=== PATIENT | female | born 1970 | race Caucasian/White ===

== ENCOUNTER 2016-10-30 20:30 | Observation (INO) | payer OTHER ==
[~2016-10-30] VITALS: Ht 170.2 cm; Wt 107.0 kg
--- NOTE | ~2016-10-30 | FD ---
ADMIT: 10/30/2016 RM/LOC: 527 [facility] MR#: [id number] [address] [address] SUHA PORTILLO [address] [place] [address] Final Diagnosis SEX: F AGE: 46 : 1970 ADMISSION DATE: 10/30/2016 DISCHARGE DATE: 10/31/2016 DISCHARGE DIAGNOSES: 1. Bilateral hydrosalpinx, possible torsion versus salpingitis. 2. History of ovarian cyst. 3. Obesity. 4. Hyperlipidemia. 5. Hypothyroidism. Thanh Kunz MD/ maryg JOB #: [id number] CC: Malinda Duque MD, Attending Physician Malinda Duque MD, Family Physician
--- NOTE | 2016-10-31 20:02 | ER ---
ADMIT: 10/30/2016 RM/LOC: 527 [facility] MR#: [id number] [address] [address] SUHA PORTILLO [address] [place] [address] Emergency Room Report SEX: F AGE: 46 : 1970 DATE: 10/30/2016 CHIEF COMPLAINT: Pelvic pain. HISTORY OF PRESENT ILLNESS: The patient is a 46-year-old female complaining of acute onset right lower quadrant abdominal pelvic pain with nausea and vomiting. Denies any urgency, fevers, chills, diarrhea, or urinary symptoms. PAST MEDICAL HISTORY: ALLERGIES: SCOPOLAMINE, CAFFEINE. MEDICATIONS: Please see nurse's MAR. ILLNESSES: Hyperlipidemia, ovarian cyst, hypothyroidism. SURGERIES: None. SOCIAL HISTORY: . Nonsmoker. Nondrinker. No illicit drugs. FAMILY HISTORY: Negative per chart review. REVIEW OF SYSTEMS: A 12-point review of systems is negative for all other systems, illnesses, or operations except as outlined above. PHYSICAL EXAMINATION: VITAL SIGNS: Temp 98, pulse 85, respirations 18, BP 100/71, SaO2 of 98% on room air. GENERAL: Toxic-appearing without jaundice or icterus. HEENT: Normocephalic. No evidence of epistaxis, rhinorrhea, or otorrhea. NECK: Supple without lymphadenopathy or thyromegaly. CHEST: Clear. Breath sounds equal. HEART: Regular rate and rhythm without murmur, gallop, or edema. ABDOMEN: Obese. Tender right lower quadrant without mass or megaly. Bowel sounds hypoactive. BACK: No CVA tenderness. PELVIC: Deferred. EXTREMITIES: No evidence of Homans sign, synovitis, or dermatitis. NEURO: EOMI. PERRLA. No evidence of drift, dysarthria, or ataxia. Gait non- antalgic. MEDICAL DECISION MAKING: CT abdomen and pelvis shows normal appendix. Cystic tubular mass noted, right and left adnexa, increase in size from previous imaging study several years ago, noted only on the left. Pelvic and vaginal ultrasound shows complex right greater than left tubular cystic adnexal mass consistent with salpingitis. WBC 11.9, lactic 1.8, CRP less than 0.29, glucose 133, procalcitonin less than 0.05, lipase 112, INR less than 1.0. HCG negative. UA 1+ blood, 2+ ketone. EKG showed low voltage sinus rhythm. No prior tracing. The patient was given vancomycin, cefepime, and Flagyl for acute on chronic salpingitis. Discussed case with Dr. Padmini Moreno, who will ADMIT: 10/30/2016 RM/LOC: 527 [facility] MR#: [id number] [address] [address] SUHA PORTILLO [address] [place] [address] Emergency Room Report SEX: F AGE: 46 : 1970 evaluate in morning. Notified Dr. Kunz of admission, request floor to call for orders. 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 RECOMMENDATION: Admit inpatient Med/Surg for Dr. Duque. ADMISSION/DISCHARGE CONDITION: Stable. CODE STATUS: The patient is a full code. Rian Nielsen MD/ modl JOB #: [id number] CC: Malinda Duque MD, Attending Physician Malinda Duque MD, Family Physician MD Padmini Clemens MD
[2016-11-01] MEDS ORDERED: ZOCOR DPS10 MG PO (15:08)
[2016-11-01] MEDS ORDERED: NORCO 5-325 TA1 EACH PO (15:08)
[2016-11-01] MEDS ORDERED: SYNTHROID DP0.025 MG PO (15:08)
[2016-11-01] MEDS ORDERED: FLAGYL-DPS500 MG PO (15:09)
[2016-11-01] MEDS ORDERED: VIBRAMYCIN-DPS100 M2 PO (15:09)
--- NOTE | 2016-11-06 12:50 | HP ---
ADMIT: 10/30/2016 RM/LOC: 527 [facility] MR#: [id number] [address] [address] [place] SUHA Magallanes [address] [place] [address] History and Physical SEX: F AGE: 46 : 1970 DATE OF SERVICE: HISTORY OF PRESENT ILLNESS: The patient is a very pleasant 46-year-old female, she has a past medical history of hypothyroidism, hyperlipidemia, as well as remote history of ovarian cyst, presents to [facility] Emergency Room today with complaints of acute onset of really right lower quadrant abdominal pain associated with nausea and vomiting, very sharp in nature, very severe, 10/10, mostly on the right side but there was some travel even over to the left. The patient notes no changes in bowel habits. She has no diarrhea or constipation. Denies any urinary change in urinary habits. She has no urgency, no frequency. No dysuria or hematuria has been noted. The patient does note flank pain, for which she tried to take some ibuprofen, but for the severity, came into the emergency room. She denies any vaginal bleeding or any changes in vaginal discharge although she does have some chronic discharge. As mentioned, she has history of ovarian cyst that was seen in the past by Dr. Hernandez, with no interventions taken. With her severe pain, she underwent imaging in the emergency room that showed questionable cystic areas and there was a question of hydrosalpinx. She was admitted for further evaluation and pain control. The patient notes she is much better this morning. Denies nausea or vomiting. Denies any fevers or chills, and rates her pain very minimal, 1 or 2 at this point. PAST MEDICAL HISTORY: 1. Obesity. 2. Hyperlipidemia. 3. Hypothyroidism. 4. Prior history of ovarian cyst. ALLERGIES: SCOPOLAMINE. CURRENT MEDICATIONS: 1. Simvastatin. 2. Synthroid. FAMILY HISTORY: Father with cancer and hypertension. Her father is . Brother with psoriasis. Had a paternal grandfather with heart disease. She is nonsmoker, nondrinker. She is . Lives in [place], [place]. She is a nurse for [employer]. REVIEW OF SYSTEMS: As noted above. All other systems are reviewed and negative. PHYSICAL EXAMINATION: VITAL SIGNS: 99.2, 84, 16, 102/67, 98% on room air. GENERAL: This is an obese female. She is very pleasant. She is in no apparent distress. She is awake. She is alert and oriented x3. Cooperative and pleasant with the examiner. HEENT: Normocephalic and atraumatic. Mucous membranes are moist. NECK: Supple. LUNGS: Clear. ADMIT: 10/30/2016 RM/LOC: 527 [facility] MR#: [id number] [address] [address] SUHA PORTILLO [address] [place] [address] History and Physical SEX: F AGE: 46 : 1970 HEART: Regular. ABDOMEN: She just has a little bit of very mild pelvic tenderness to deep palpation bilaterally. There is no rebound. No guarding is noted. She is nondistended. She has good bowel sounds throughout. EXTREMITIES: Show no significant edema. SKIN: Shows no rash. She has good peripheral pulses. NEUROLOGIC: No cranial nerve deficits. LABORATORY AND X-RAY DATA: Her white count is 11.9, her hemoglobin is 13, and 294,000 platelets. Sodium 140, potassium 4.1, BUN is 16, creatinine 1.0. Her lipase was normal. Her liver function tests, AST, ALT, and alkaline phosphatase within normal limits. Her Mag was 2.2. Urinalysis showed 2+ ketones, 1+ blood, 1 red cell, 1 white cell, and 2 squamous cells. Imaging of the abdomen and pelvis initially with CT scan showed a normal appendix. There were bilateral tubular structures in the adnexal regions bilaterally, left greater than right, suspicious for possible bilateral hydrosalpinx with complex ovarian or adnexal cyst not excluded. Transvaginal and pelvic ultrasound was also undertaken to follow up that CT scan, and it showed suspicion of bilateral complex adnexal masses which may represent abnormal ovaries. The normal ovaries were not identified. ASSESSMENT AND PLAN: 1. Abdominal/pelvic pain. 2. Nausea and vomiting. 3. Bilateral complex adnexal masses versus ovarian cyst on ultrasound. 4. Mild leukocytosis. 5. Hypothyroidism. 6. Hyperlipidemia. 7. Obesity. At this point, the patient is feeling much better. Certainly, does not have a lot of other symptoms concerning for pelvic inflammatory disease. We have treated her pain. We have treated her nausea. We have treated her empirically for PID. We will have Gynecology see her as this is still quite kind of a strange presentation to me, we want them to review the findings. Right now, since she is feeling so much better, we will advance her diet, we will let her walk in the halls and hopefully lock her fluids, and follow up based on Gynecology recommendations. Thanh Knuz MD/ kamini JOB #: [id number] CC: Malinda Duque, Attending Physician Malinda Duque, Family Physician
--- NOTE | 2016-11-16 09:14 | CO ---
ADMIT: 10/30/2016 RM/LOC: 527 [facility] MR#: [id number] [address] [address] SUHA PORTILLO [place] [address] [place] [address] Consultation SEX: F AGE: 46 : 1970 DATE OF CONSULTATION: 10/31/2016 ATTENDING PHYSICIAN: Malinda Duque CONSULTING PHYSICIAN: Padmini Moreno MD REASON FOR CONSULT: Right lower quadrant pain. HISTORY OF PRESENT ILLNESS: The patient is a 46-year-old female who presented to the emergency room on 10/30/2016, with complaints of right lower quadrant pain. The patient stated that she had sudden onset of pain on the evening of 10/30/2016. She denies any other bowel symptoms at that time. At time of consultation, the patient states that her pain has resolved. On evaluation in the emergency room, the patient had a CT scan performed of the abdomen and pelvis. At that time, it was noted that the CT was significant for bilateral tubular structures in the adnexal regions bilaterally, left greater than right which appeared most consistent with bilateral hydrosalpinx. The patient had been noted on a previous CT scan in 2007 to have a similar area in the left adnexal region, but the right adnexal tubular structure was new. The patient stated that after admission, her pain did improve. PAST MEDICAL HISTORY: 1. Hypothyroidism. 2. Hyperlipidemia. PAST SURGICAL HISTORY: None. CURRENT MEDICATIONS: 1. Simvastatin. 2. Synthroid. ALLERGIES: SCOPOLAMINE AND CAFFEINE. FAMILY HISTORY: Father with history of colon cancer. SOCIAL HISTORY: The patient is . She denies any alcohol, tobacco, or drug use. REVIEW OF SYSTEMS: GENERAL: The patient denies any fever, chills, or unexpected weight changes. CARDIOVASCULAR: No chest pain, palpitations, or dyspnea with exertion. RESPIRATORY: No cough, wheeze, or shortness of breath. GASTROINTESTINAL: Positive for right lower quadrant pain and nausea and vomiting prior to arrival. She denies any constipation or diarrhea. FEMALE GENITOURINARY: Positive for irregular menstrual bleeding which was evaluated with endometrial biopsy approximately 7 years ago and has not been evaluated since that time. MUSCULOSKELETAL: No joint pain or muscle weakness. ADMIT: 10/30/2016 RM/LOC: 527 [facility] MR#: [id number] [address] [address] SUHA PORTILLO [place] [address] [place] [address] Consultation SEX: F AGE: 46 : 1970 PHYSICAL EXAMINATION: VITAL SIGNS: At time of admission blood pressure 100/71, pulse 85, respirations 18, and temperature 98. HEART: Regular rate and rhythm without murmurs, gallops, or rubs. LUNGS: Clear to auscultation bilaterally. ABDOMEN: Soft, mildly tender to palpation in the right lower quadrant. Otherwise nontender. No masses appreciated. EXTREMITIES: No edema. No calf tenderness. FEMALE GENITOURINARY: Deferred. LABORATORY DATA: CBC; white count 11.9, hemoglobin 13.0, hematocrit 39.7, and platelets 294. Lactic acid 1.8. Creatinine 0.8. CMP; sodium 140, potassium 4.1, chloride 106, carbon dioxide 23, BUN 16, creatinine 1.0, AST 26, and ALT 37. CT abdomen and pelvis showing dilated tubular structures in left adnexal region 9.9 x 4.6 and right tubular structure 8.0 x 4.7 with increased areas of density in the dependent portions of the tubular structure. Uterus appeared normal on CT scan with some possible fluid in endocervical canal. ASSESSMENT AND PLAN: This 46-year-old female with acute right lower quadrant pain and bilateral hydrosalpinx by imaging. At the time of consultation, the patient's pain is completely resolved without medication. The pain could be result of potential partial torsion of the hydrosalpinx or due to hydrosalpinx itself. At this time due to the patient's stable nature, plan to discharge to home. The patient was started on IV antibiotics in the emergency room in case of possible salpingitis. We will continue doxycycline and Flagyl as an outpatient. She will likely need to have surgery for bilateral salpingectomy and this will be coordinated on an outpatient basis. Padmini Moreno MD/ kamini JOB #: [id number] CC: Malinda Duque, Attending Physician Malinda Duque, Family Physician
[2016-11-24] MEDS ORDERED: SENOKOT DPS8.6 MG PO (13:31)
[2016-11-24] MEDS ORDERED: MOTRIN-DPS400 MG PO (13:31)
[2016-11-24] MEDS ORDERED: TYLENOL EXTRA500 M1 PO (13:31)
== END 2016-10-31 14:24 | disposition home or self-care (01) ==
LOC: ER 20:30 → 5MS 23:25
PROVIDERS: ADMIT Internal Medicine
DX: N70.11 Chronic salpingitis (principal); E78.5 Hyperlipidemia, unspecified; E03.9 Hypothyroidism, unspecified; D72.829 Elevated white blood cell count, unspecified; E66.9 Obesity, unspecified; Z68.36 Body mass index [BMI] 36.0-36.9, adult; Z88.8 Allergy status to other drugs, medicaments and biological substances

== ENCOUNTER 2016-11-18 05:47 | Inpatient (IN) | payer OTHER ==
[~2016-11-18] VITALS: Ht 170.2 cm; Wt 104.9 kg
[~2016-11-18 05:47] MED LIST: FLAGYL-DPS500 MG PO; NORCO 5-325 TA1 EACH PO; SYNTHROID DP0.025 MG PO; VIBRAMYCIN-DPS100 M2 PO; ZOCOR DPS10 MG PO
--- NOTE | 2016-11-23 07:23 | OR ---
ADMIT: 11/18/2016 RM/LOC: 629 [facility] MR#: [id number] [address] [facility] [address] [place], [place] [address] SUHA PORTILLO [address] [place] [address] Operative/Delivery Room Report SEX: F AGE: 46 : 1970 SURGERY DATE: 11/18/2016 SURGEON: Chino Flanagan MD PREOPERATIVE DIAGNOSIS: Abdominal adhesions. POSTOPERATIVE DIAGNOSIS: Abdominal adhesions. PROCEDURE: 1. Lysis of adhesions. 2. Serosal repair of the rectum. 3. Proctoscopy. MANAGER: PIETER Lundberg, whose assistance was necessary for tissue retraction. ESTIMATED BLOOD LOSS: 50 mL. DESCRIPTION OF PROCEDURE: The patient remained in the operating room, and was undergoing open hysterectomy because of extensive pelvic adhesions for endometriosis. She also had a large cystic structure in the left ovary. I was consulted intraoperatively to assist with adhesiolysis of the rectum in the pelvis. I did perform this under visualization. The anterior border of the rectum was densely adherent to the posterior uterus. This was sharply freed to allow complete exposure of the uterus for completion of the gynecologic procedure. Once the hysterectomy was completed, I returned for inspection of the rectum. There was some deserosalization of the rectum, but no evidence of mucosal injury. I did perform proctoscopy and there was evidence for good mucosal integrity and no evidence of leak. The proctoscope was withdrawn. There was solid stool in the distal rectum. The serosa overlying the denuded area was then reapproximated with 3-0 silk suture. This allowed adequate coverage of the mucosa. The pelvis was irrigated and there was no significant bleeding or other abnormality. The remainder of the procedure was completed and closure was performed by Dr. Moreno. Chino Flanagan MD/ kamini JOB #: [id number] CC: Padmini Moreno, Attending Physician Padmini Moreno, Family Physician
[2016-11-24] MEDS ORDERED: SENOKOT DPS8.6 MG PO (13:31)
[2016-11-24] MEDS ORDERED: TYLENOL EXTRA500 M1 PO (13:31)
[2016-11-24] MEDS ORDERED: MOTRIN-DPS400 MG PO (13:31)
--- NOTE | 2016-12-21 08:59 | OR ---
ADMIT: 11/18/2016 RM/LOC: 629 [facility] MR#: [id number] 2620 [facility] [address] [place] [id number] SUHA PORTILLO [address] [place] [address] Operative/Delivery Room Report SEX: F AGE: 46 : 1970 SURGERY DATE: 11/18/2016 SURGEON: Padmini Moreno MD PROCEDURES: 1. Diagnostic laparoscopy. 2. Dilation and curettage. 3. Total abdominal hysterectomy with bilateral salpingo-oophorectomy and lysis of adhesions. 4. Cystoscopy. DA[employer]Y MANUFACTURING TECHNOLOGIST: Eliana Mejias MD. FINDINGS AT TIME OF SURGERY: 1. Extensive pelvic adhesions due to endometriosis. The patient was noted to have complex adnexal masses bilaterally which were extensively scarred to the pelvic sidewalls bilaterally and to the bowel posteriorly as well as extensive adhesions of the bowel to the posterior uterus. 2. Bilateral endometriomas. 3. Total obliteration of the cul-de-sac due to the pelvic adhesions. ESTIMATED BLOOD LOSS: 800 mL. ANESTHESIA: General. COMPLICATIONS: None. INDICATIONS FOR PROCEDURE: The patient is a 46-year-old female who had presented to the emergency room with complaints of acute abdominal pain in October. The patient at that time had by CT and ultrasound appeared to be complex adnexal masses which appeared most consistent with bilateral hydrosalpinx. The patient was therefore scheduled for laparoscopic bilateral salpingectomy with possible oophorectomy. The patient also had been having at times irregular bleeding and so decision made to proceed with dilation and curettage for endometrial tissue and diagnosis at the same time of surgery. Risks, benefits, and alternatives of surgery including, but not limited to risk of bleeding, possibly requiring blood transfusion, risk of infection, the risk of injury to bowel or bladder. The patient was also counseled that due to the large size of the complex masses on ultrasound, open abdominal incision may be necessary. She understands these risks and wished to proceed. DESCRIPTION OF PROCEDURE: The patient was taken to the operating room where general anesthesia was obtained without difficulty. The patient was placed in dorsal lithotomy position in Yellofin stirrups and prepped and draped in usual sterile fashion. Attention was first to the patient's vagina. Weighted speculum was placed the patient's vagina and the anterior lip of the cervix was grasped with a single-tooth tenaculum. The uterus was sounded to approximately 9 cm. The cervix was gently dilated to allow for passage of the curette. Curettage was then performed in all 4 quadrants to obtain tissue. ADMIT: 11/18/2016 RM/LOC: 629 [facility] MR#: [id number] [address] [address] SUHA PORTILLO [address] [place] [address] Operative/Delivery Room Report SEX: F AGE: 46 : 1970 After curettage was performed, an acorn uterine manipulator was then placed into the patient's cervix. Gloves were changed and attention was turned to the patient's abdomen. A 5-mm infraumbilical incision was made with scalpel after local infiltration of 0.25% Marcaine. A Veress needle was inserted into the infraumbilical incision. The patient's abdomen was insufflated to a patient pressure of 15 mmHg. Good gas flow and low patient opening pressure were noted with insufflation. A 5-mm trocar was then placed into this incision and intraperitoneal placement was assured with the camera. At this point, 2 additional ports were placed in the left and right lower quadrants and an 11 mm port in the right lower quadrant and a 5 mm port in the left lower quadrant. At this point, the patient was placed in Trendelenburg position. At this time the findings as described above were noted. It was noted that there appeared to be bilateral complex cystic masses replacing the tubes and ovaries and those were not able to be delineated. The bowel was also completely scarred to the posterior uterus and to these complex adnexal masses and this was not able to be manipulated laparoscopically at all. These findings appeared most consistent with endometriosis. Due to the extensive scarring and findings inside the pelvis, it was thought that the next approach would either be to abandon the procedure and memorial counselor patient regarding need for hysterectomy in 6 weeks or to continue the procedure, but proceed as an open abdominal hysterectomy with bilateral salpingo-oophorectomy. The patient's was contacted and he gave verbal consent to proceed with total abdominal hysterectomy with bilateral salpingo-oophorectomy. At this point, the 11 mm port was closed with the Raymundo-Marie device using 0 Vicryl. All ports were then removed from the abdomen. The CO2 gas was removed from the patient's abdomen as well. A Pfannenstiel skin incision was made with a scalpel, was carried through to the underlying layer of fascia. The fascia was nicked in midline and this incision was extended bilaterally using Miller scissors. The superior aspect of the fascial incision was grasped with Nila clamps, elevated, and the underlying rectus muscles were dissected off bluntly with electrocautery. In a similar fashion, the inferior aspect of the fascial incision was grasped with Nila clamps, elevated, and the underlying rectus muscles were dissected off bluntly with Miller scissors. The peritoneum was entered bluntly and this incision was extended bluntly as well. Moistened laparotomy sponges were used to pack away the bowel as much as possible. However, this was difficult due to adhesions to the posterior uterus and adnexa. A bladder blade was placed as well using a self-retaining retractor. At this point, inspection of the uterus again identified extremely dense adhesions of the bowel to the posterior uterus and adnexa bilaterally. The patient's round ligaments were able to be identified and the cornua bilaterally were clamped using Nila clamps. The right round ligament was identified, and this was tied off using a suture of 0 Vicryl. The round ligament was then divided using electrocautery. The anterior leaf of the broad ligament was taken down anteriorly, creating a bladder flap posteriorly as much as possible. At this point, the bowel was able to be mostly dissected ADMIT: 11/18/2016 RM/LOC: 629 [facility] MR#: [id number] [address] [address] SUHA PORTILLO [address] [place] [address] Operative/Delivery Room Report SEX: F AGE: 46 : 1970 away from the right adnexal mass. The ureter on the patient's right side was able to be identified just inferior to the infundibulopelvic ligament. The IP ligament was able to be isolated and this was doubly clamped, transected, and suture ligated with 0 Vicryl. It was noted that the ovary on this side was still quite adherent to the pelvic sidewall and so this was left in place at this time. At this point, the bowel was attempted to be removed as much as possible from the posterior uterus. It was felt these adhesions were extremely dense and there was a possibility of causing bowel lesion due to dissection and so intraoperative General Surgery consult was obtained with Dr. Chino Flanagan. Please see his dictation for his portion of the procedure. He was able to dissect the rectosigmoid colon off the uterus significantly to allow for easier dissection and to continue with hysterectomy. The patient's right round ligament was then suture ligated and transected with electrocautery. The anterior leaf of the broad ligament was taken down to the midline as well. The bladder was bluntly dissected away from the anterior cervix. At this point, the posterior leaf of the broad ligament was taken down as much as possible, however, there was noted to be a very large complex mass on the side, which extended into the cul-de-sac and was adherent to the posterior uterus and to the pelvic sidewall as well. Bluntly this was able to be dissected away carefully from the pelvic sidewall with dissection. There was noted to be a rupture of the complex cyst and endometrioma fluid was noted. The infundibulopelvic ligament was able to be isolated on this side as well. It was difficult to identify the ureter on this side as it was within the complex mass formed by the endometrioma. The IP ligament was doubly clamped, transected, and suture ligated. At this point, continued dissection of the complex adnexal mass was performed using a combination of blunt and sharp dissection with Metzenbaum scissors to lift this cyst out of the pelvis. At this point, the cardinal and broad ligaments were sequentially clamped, transected, and suture ligated on the patient's left. The uterine vessels were able to be identified, were clamped, transected, and suture ligated. In a similar fashion on the patient's right side, the broad ligament was sequentially clamped, transected, and suture ligated with 0 Vicryl. It was felt that the bowel had been adequately removed from the posterior uterus and the bladder was off the anterior cervix adequately. Straight clamps were then used to clamp across the cervical vessels, these were transected and suture ligated. The curved Curtis clamps were then used to clamp beneath the cervix. The uterus was then able to be amputated from the vagina using Anabell scissors. At this point, the vaginal cuff was closed using 0 Vicryl in a running locked fashion. Good hemostasis was noted. Dr. Flanagan then again entered the case to assure that the bowel was intact. Please see his dictation for this portion of the procedure, but he was able to note intact bowel and the serosa overlying the sigmoid colon was able to be brought together as described in his dictation. At this point, the pedicles appeared hemostatic. There was some difficulty in completely removing the right adnexal mass, but it was felt that there was an area that was able to be clamped across, transected, and suture ligated removing the right ovary almost in its entirety. As it was difficult to again see the ureter after the ADMIT: 11/18/2016 RM/LOC: 629 [facility] MR#: [id number] [address] [address] SUHA PORTILLO [address] [place] [address] Operative/Delivery Room Report SEX: F AGE: 46 : 1970 [address], no further dissection was performed on the patient's side due to difficulty in visualization and delineating ovarian tissue. Floseal was placed in the cul-de-sac for some tissue that was oozing after dissection. At this point, all sponges and instruments removed from the patient's pelvis. All sponge and needle counts were correct. The fascia was then closed in a running fashion using 0 Vicryl. The subcutaneous layer was made hemostatic with electrocautery and this layer was brought together using interrupted 2-0 plain gut, and the skin incision was closed with subcuticular stapler. The laparoscopic skin incisions had been previously closed with subcuticular 3-0 Vicryl. Cystoscopy was then performed. The bladder appeared intact without lesions and bilateral ureteral jets were noted. The Lopez catheter was then replaced after cystoscopy. The patient tolerated the procedure well. All sponge and needle counts were correct. The patient went to recovery in stable condition. Padmini Moreno MD/ kamini JOB #: [id number] CC: Padmini Moreno, Attending Physician Padmini Moreno, Family Physician
--- NOTE | 2016-12-28 08:50 | HP ---
ADMIT: 11/18/2016 RM/LOC: [facility] MR#: [id number] [address] [address] SUHA PORTILLO [address] [place] [address] Pre-OP History and Physical SEX: F AGE: 46 : 1970 DATE OF SERVICE: HISTORY OF PRESENT ILLNESS: The patient is a 46-year-old female, 6, para 2-0-4-2, who originally presented to [facility] approximately on the 30 of October with complaints of acute abdominal pain. The patient had CT scan performed in the emergency room and this was significant for bilateral tubular structures in the adnexal regions bilaterally. The tubular structure on the right appeared to be a new finding, but on the left, the patient had previous noted similarly in 2008. Pelvic ultrasound was obtained to further evaluate this. This showed that the uterus and endometrium appeared unremarkable and complex tubular structures bilaterally were noted. The right adnexal area was 7.5 x 6.1 x 4.1 cm, and on the left was noted to be 5.6 x 4.8 x 5.4 cm. This was read as bilateral hydrosalpinx but could be adnexal or could be ovarian in nature. Uterus and endometrium appeared normal on ultrasound report. The patient stated that her pain in the hospital initially resolved. However, she continued to have episodic pelvic pain alternating from the right to left side as well as a feeling of pelvic pressure. After reviewing the findings, the patient desires definitive surgical management. PAST MEDICAL HISTORY: 1. Hyperlipidemia. 2. Hypothyroidism. 3. Obesity. PAST SURGICAL HISTORY: None. CURRENT MEDICATIONS: 1. Simvastatin 10 mg daily. 2. Synthroid 100 mcg daily. ALLERGIES: SCOPOLAMINE PATCH CAUSES RASH, DIZZINESS, AND HEADACHE. CAFFEINE CAUSES HEADACHE, BLURRY VISION, AND FACIAL FLUSHING. FAMILY HISTORY: Father with colon cancer and maternal grandmother with hypertension. SOCIAL HISTORY: The patient is . She denies any alcohol, tobacco, or drug use and works as a school nurse. REVIEW OF SYSTEMS: GENERAL: The patient is not feeling well. She denies any fever, chills, or unexpected weight changes. CARDIOVASCULAR: No chest pain, palpitations, or dyspnea with exertion. RESPIRATORY: No cough, wheeze, or shortness of breath. GASTROINTESTINAL: Positive for abdominal pain and pressure as noted above. She denies any constipation or diarrhea. She does complain of mild nausea which she relates to taking antibiotics within the last few weeks. GENITOURINARY: Pelvic pain as noted above. She also complains of irregular menstrual periods and occasional brown discharge which is irregular. She ADMIT: 11/18/2016 RM/LOC: [facility] MR#: [id number] [address] [place] [id number] SUHA PORTILLO [address] [place] [address] Pre-OP History and Physical SEX: F AGE: 46 : 1970 denies any urinary complaints. MUSCULOSKELETAL: No joint pain or muscle weakness. IMAGING: As described above. ASSESSMENT AND PLAN: 1. A 46-year-old female with pelvic pain and what appears to be hydrosalpinx bilaterally on pelvic ultrasound. Plan at this time is to proceed with laparoscopy with planned bilateral salpingectomy and possible unilateral or bilateral oophorectomy depending on findings at the time of surgery. The risks, benefits, and alternatives of surgery including, but not limited to the risk of bleeding, possibly requiring a blood transfusion, risk of infection, and the risk of injury to bowel or bladder have been discussed with the patient, and she wishes to proceed. 2. Irregular menstrual bleeding. The patient has had a several year history of irregular menstrual bleeding and states that she has had a previous normal endometrial biopsy at an outside facility but declined an office biopsy, and so plan to proceed with D and C at time of laparoscopy. Padmini Moreno MD/ kamini JOB #: [id number] CC: Padmini Moreno, Attending Physician UNKNOWN, Family Physician
--- NOTE | 2017-01-01 08:03 | DS ---
ADMIT: 11/18/2016 RM/LOC: 629 [facility] MR#: [id number] [address] [address] SUHA PORTILLO [address] [place] [address] General Discharge Summary SEX: F AGE: 46 : 1970 ADMISSION DATE: 11/18/2016 DISCHARGE DATE: 11/23/2016 ADMISSION DIAGNOSES: 1. Pelvic pain. 2. Presumed hydrosalpinx. 3. Irregular menstrual bleeding. DISCHARGE DIAGNOSES: 1. Pelvic pain. 2. Pelvic endometriosis with significant pelvic adhesions. PROCEDURES PERFORMED: 1. Diagnostic laparoscopy, dilation and curettage. 2. Total abdominal hysterectomy with bilateral salpingo-oophorectomy and lysis of adhesions. 3. Cystoscopy. INDICATIONS FOR HOSPITALIZATION: The patient is a 46-year-old female who had presented to the emergency room on October 30 with complaints of abdominal pain. The patient was noted to have bilateral tubular structures in the adnexal regions, and so decision was made to proceed with laparoscopy with bilateral salpingectomy due to presumed hydrosalpinx. The patient underwent this procedure. However, at that time, she was noted to have extensive endometriosis and extensive pelvic adhesions obliterating the cul-de-sac, and so decision was made to proceed with total abdominal hysterectomy with bilateral salpingo-oophorectomy. The patient's was consented for this procedure and this procedure was performed on 11/18/2016. During surgery, it was noted there were extensive adhesions from the ovary to the bowel, and so Dr. Flanagan of General Surgery was intraoperatively consulted and he was able to take down the bowel adhesions. HOSPITAL COURSE: The patient's pain was controlled on postoperative day #1. The patient did have nausea and vomiting overnight but resolved. Vital signs were stable and postoperative hemoglobin was noted to be 9.5. Due to the patient's extensive bowel adhesions, her diet was advanced very slowly to try to avoid ileus. By postoperative day #3, the patient's pain was controlled. ADMIT: 11/18/2016 RM/LOC: 629 [facility] MR#: [id number] 2620 [facility] [address] [place] [phone] SUHA PORTILLO [address] [place] [address] General Discharge Summary SEX: F AGE: 46 : 1970 She had slight nausea and vital signs remained stable. Postoperative day #4, the patient had positive flatus and was ambulating without difficulty, and by postoperative day #5, the patient was deemed stable for discharge. DISCHARGE INSTRUCTIONS: The patient is to be discharged to home. She is to continue home medications, Senokot one tablet twice daily, Synthroid, and Zocor 10 mg daily. She is to continue Motrin and extra-strength Tylenol as needed for pain control. FOLLOWUP: She is to follow up in the clinic in 2 weeks for an incision check and in 6 weeks for postoperative check and is also to follow up with Dr. Flanagan in 1 week. Padmini Moreno MD/ kamini JOB #: [id number] CC: Padmini Moreno MD, Attending Physician Padmini Moreno MD, Family Physician
== END 2016-11-23 15:06 | disposition home or self-care (01) | DRG 742 ==
LOC: SSS 05:47 → 6PED 11:57 → SSS 14:52 → 6PED 11-23 15:06
PROVIDERS: ADMIT Obstetrics & Gynecology
PROC: 0UTC0ZZ Resection of Cervix, Open Approach (ICD-10-PCS; principal; 2016-11-18)
PROC: 0UT90ZZ Resection of Uterus, Open Approach (ICD-10-PCS; principal; 2016-11-18)
PROC: 0WJJ4ZZ Inspection of Pelvic Cavity, Percutaneous Endoscopic Approach (ICD-10-PCS; principal; 2016-11-18)
PROC: 0UT20ZZ Resection of Bilateral Ovaries, Open Approach (ICD-10-PCS; principal; 2016-11-18)
PROC: 0UNF0ZZ Release Cul-de-sac, Open Approach (ICD-10-PCS; principal; 2016-11-18)
PROC: 0DNN0ZZ Release Sigmoid Colon, Open Approach (ICD-10-PCS; principal; 2016-11-18)
PROC: 0TJB8ZZ Inspection of Bladder, Via Natural or Artificial Opening Endoscopic (ICD-10-PCS; principal; 2016-11-18)
PROC: 0DQP0ZZ Repair Rectum, Open Approach (ICD-10-PCS; principal; 2016-11-18)
PROC: 0DJD8ZZ Inspection of Lower Intestinal Tract, Via Natural or Artificial Opening Endoscopic (ICD-10-PCS; principal; 2016-11-18)
PROC: 0UT70ZZ Resection of Bilateral Fallopian Tubes, Open Approach (ICD-10-PCS; principal; 2016-11-18)
PROC: 0UN90ZZ Release Uterus, Open Approach (ICD-10-PCS; principal; 2016-11-18)
PROC: 0UDB8ZX Extraction of Endometrium, Via Natural or Artificial Opening Endoscopic, Diagnostic (ICD-10-PCS; principal; 2016-11-18)
PROC: 0UN40ZZ Release Uterine Supporting Structure, Open Approach (ICD-10-PCS; principal; 2016-11-18)
DX: N80.0 Endometriosis of uterus (principal); D62 Acute posthemorrhagic anemia; E66.9 Obesity, unspecified; N80.3 Endometriosis of pelvic peritoneum; N80.2 Endometriosis of fallopian tube; N80.1 Endometriosis of ovary; E03.9 Hypothyroidism, unspecified; Z53.31 Laparoscopic surgical procedure converted to open procedure; E78.2 Mixed hyperlipidemia; L40.9 Psoriasis, unspecified; Z68.36 Body mass index [BMI] 36.0-36.9, adult

== ENCOUNTER → 2017-01-26 | Outpatient (CLI) | payer OTHER ==
[~2017-01-26] MED LIST changes: +MOTRIN-DPS400 MG PO; +SENOKOT DPS8.6 MG PO; +TYLENOL EXTRA500 M1 PO
== END | disposition home or self-care (01) ==
LOC: RAD.S 09:00
DX: Z12.31 Encounter for screening mammogram for malignant neoplasm of breast (principal)